=== PATIENT | male | born 1965 | race Caucasian/White ===

== ENCOUNTER → 2018-12-24 | Outpatient (CLI) | payer OTHER ==
[~2018-12-24] MED LIST: ASPIRIN EC81 M1 PO; FLEXERIL PO; NAPROSYN500 MG PO; NORVASC 2.5 MG2.5 M1; PRINIVIL
== END ==
LOC: M.ULTRA 07:04
DX: N50.3 Cyst of epididymis (principal); N43.42 Spermatocele of epididymis, multiple; I10 Essential (primary) hypertension; K21.9 Gastro-esophageal reflux disease without esophagitis; Z72.0 Tobacco use